=== PATIENT | female | born 1980 | race Caucasian/White ===

== ENCOUNTER 2021-04-13 08:49 | Emergency (ER) | payer OTHER, SELFPAY ==
--- NOTE | ~2021-04-13 | CT_ITS ---
EXAMINATION: CT ABDOMEN AND PELVIS WITHOUT CONTRAST CLINICAL INFORMATION: Left flank pain. History of renal colic. COMPARISON: CT pelvis 06/21/2020 TECHNIQUE: Multidetector volumetric imaging was performed from the superior aspect of the liver through the pubic symphysis. Sagittal and coronal reformatted images were obtained on the technologist's workstation. This CT examination was performed using dose optimization techniques as appropriate, variously including the following: *Automated exposure control *Adjustment of mA and/or kV according to patient size (this includes techniques or standardized protocols for targeted exams where dose is matched to indication/reason for exam; i.e. extremities or head) *Use of iterative reconstruction technique DLP: 1840 mGy-cm FINDINGS: LUNG BASES: The lung bases are clear. The heart size is normal. LIVER, GALLBLADDER, AND BILIARY TREE: The liver is normal in size, shape, and attenuation. No focal hepatic lesion or biliary ductal dilatation is present. The gallbladder is contracted and appears unremarkable. PANCREAS: Unremarkable. SPLEEN: Unremarkable. ADRENAL GLANDS: Unremarkable. KIDNEYS AND URETERS: Both kidneys are normal size and shape and position. There are multiple radiopaque calculi in midpole and lower pole left kidney. Largest radiopaque calculi mid pole measures 6 mm and lower pole calyx measures 1.2 cm. In midpole cortex calculi measures 6 mm as well. No focal caliectasis or hydronephrosis seen. Small radiopaque calculi visualized in upper pole and lower pole right kidney as well. Largest calculus upper pole measures 3 mm and lower pole measures 3 mm. No focal caliectasis or hydronephrosis seen. BLADDER: Unremarkable. GASTROINTESTINAL TRACT: The small and large bowel are unremarkable. The appendix is unremarkable. ABDOMINAL WALL: No significant hernia is appreciated. LYMPH NODES: Normal. VASCULAR: Unremarkable. PELVIC VISCERA: There are numerous bilateral inguinal lymph nodes largest in the left inguinal region measures 2.2 x 1.3 cm. OSSEOUS STRUCTURES: The sacrum is diffusely hypodense compared to pelvic and lumbar spine density there is deformity of bilateral femurs with intramedullary femoral linda secondary to osteogenesis imperfecta. There is extra scoliosis of dorsal spine. CT/CT abdomen pelvis wo con IMPRESSION: Multiple bilateral nonobstructive radiopaque renal calculi. No hydronephrosis. Normal appendix. Bilateral inguinal lymph nodes largest in the left inguinal region. Sequelae of question isn't perfect involving bilateral femur. General abnormality of bilateral hip joints
--- NOTE | 2021-04-13 08:57 | ED.ABDPAIN ---
HPI - Abdominal Pain General Chief Complaint: Back Pain/Injury Stated Complaint: L FLANK PAIN,? KIDNEY STONE Time Seen by Provider: 04/13/21 08:52 Source: patient, family, EMS and old records reviewed Mode of arrival: EMS Limitations: no limitations History of Present Illness MD elicited complaint: flank pain Pertinent past history: kidney stones Onset (ago): day(s) (2 days but much worse this AM) Pain Consistency: colicky Location: L flank Severity: moderate Quality: stabbing Radiation: LLQ Migration to: no migration Exacerbating factors: nothing Relieving factors: nothing Context: history of similar episodes Associated symptoms: nausea, vomiting and diarrhea Related Data Home Medications Medication Instructions Recorded Confirmed albuterol sulfate 2.5 mg INHALATION .QH8 PRN ml 07/17/20 09/24/20 albuterol sulfate 90 mcg/actuation 2 puff INHALATION Q4H PRN g 07/17/20 09/24/20 aerosol inhaler oxybutynin chloride 5 mg mg PO 07/17/20 09/24/20 tablet,extended release 24 hr Previous Rx's Medication Instructions Recorded morphine 30 mg immediate release 30 mg PO Q8H 30 Days #90 tab 09/16/20 tablet clotrimazole-betamethasone 1 1 appl TOPICAL ONCE 30 Days #45 g 09/24/20 %-0.05 % topical cream nystatin 100,000 unit/gram topical 1 appl TOPICAL ONCE 30 Days #60 g 09/24/20 powder zonisamide 100 mg capsule 600 mg PO BEDTIME #540 cap 12/01/20 ibuprofen 800 mg tablet 800 mg PO Q8H PRN #90 tab 01/29/21 cyclobenzaprine 10 mg tablet 10 mg PO Q8H #90 tab 01/30/21 Allergies Allergy/AdvReac Type Severity Reaction Status Date / Time amoxicillin [Amoxicillin] Allergy Mild HIVES Verified 09/24/20 10:04 aspirin [Aspirin] Allergy Mild HIVES Verified 09/24/20 10:04 codeine [Codeine] Allergy Mild HIVES Verified 09/24/20 10:04 latex [Latex] Allergy Mild HIVES Verified 09/24/20 10:04 Penicillins Allergy Mild HIVES Verified 09/24/20 10:04 azithromycin [AZITHROMYCIN] Allergy Unknown HIVES Verified 09/24/20 10:04 divalproex sodium Allergy Unknown HIVES Verified 09/24/20 10:04 [From Depakote] erythromycin base Allergy Unknown HIVES Verified 09/24/20 10:04 [Erythromycin Base] gabapentin [From Neurontin] Allergy Unknown HIVES Verified 09/24/20 10:04 phenobarbital Allergy Unknown anaphylaxis Verified 09/24/20 10:04 phenytoin [From Dilantin] Allergy Unknown HIVES Verified 09/24/20 10:04 Sulfa (Sulfonamide Allergy Unknown HIVES Verified 09/24/20 10:04 Antibiotics) ALL SEIZURE MEDS Allergy Intermediate HIVES Uncoded 09/24/20 10:04 oxycodone Allergy Unknown hives Uncoded 09/24/20 10:04 Review of Systems Review of Systems Constitutional : No Weight loss, No Fever, No Chills ENT/Mouth : No sore throat, No Rhinorrhea Eyes: No Swelling, No Redness Cardiovascular : No Chest Pain, No SOB, NoEdema Respiratory : No Cough, No Sputum, No Wheezing Gastrointestinal : Positive Nausea, Positive Vomiting, positive Diarrhea, positive abdominal Pain, No Hematochezia, No Melena Genitourinary : No Dysuria, No Urinary Frequency, No Hematuria, No Urgency Musculoskeletal : No joint pain, No Myalgias, No Joint Swelling Skin : No Skin Lesions, No rash Neuro : No Weakness, No Numbness, No Dizziness, No Headache Psych : No Anxiety/Panic, No Depression Heme/Lymph: No Bruising, No Lymphadenopathy Endocrine : No Polyuria, No Polydipsia All other systems reviewed and are negative. Physical Exam Vital Signs: Vital Signs: Last Vital Signs Temp 98.0 F 04/13/21 09:57 Pulse 100 04/13/21 11:51 Resp 18 04/13/21 11:51 BP 115/70 04/13/21 11:51 Pulse Ox 99 04/13/21 09:57 Body Mass Index 101.7 Appearance: Alert. Oriented X3. No acute distress. Eyes: Pupils equal, round and reactive to light. ENT: Pharynx normal. Neck: Normal inspection. Neck supple. CVS: Normal heart rate and rhythm. Pulses normal. Respiratory: No respiratory distress. Breath sounds normal. Abdomen: Soft and obese L flank moderate ttp no rebound Skin: Skin warm and dry. Normal skin color. Normal skin turgor. Extremities: No lower extremity edema. LL bilateral deformities Neuro: Oriented X 3. No motor deficit. No sensory deficit. Course Course Course Narrative: feels better, workup negative no UTI can be safely DC home MDM - Abdominal Pain MDM Narrative Medical decision making narrative: 40 yo female with hx of seizures, osteogenesis imperfecta, prior renal colic requiring stents in the past comes in with L flank pain and n/v/d - feels like a stone to her at this time labs, UA, CT scan for renal colic, IV dilaudid for pain, dispo per results and findings. Lab Data Result diagrams: 04/13/21 10:14 04/13/21 10:14 Labs: Lab Results 04/13/21 04/13/21 04/13/21 Range/Units 10:14 10:14 14:22 WBC 8.0 (4.8-10.8) X10*3/uL RBC 4.79 (4.20-5.50) X10*6/uL Hgb 12.3 (12.0-16.0) g/dl Hct 40.0 (37-47) % MCV 83.5 (80-98) fL MCH 25.7 L (27.0-33.0) pg MCHC 30.8 L (31.0-35.0) g/dl RDW 15.9 (11.0-16.0) % Plt Count 260 (160-400) X10*3/uL MPV 9.6 (9.4-12.3) fL Immature Gran % (Auto) 0.4 (0.0-0.4) % Neut % (Auto) 80.9 H (45-73) % Lymph % (Auto) 13.2 L (20-40) % [place] % (Auto) 5.0 (2-11) % Eos % (Auto) 0.4 (0-4) % Baso % (Auto) 0.1 (0-2) % Lymph # (Auto) 1.1 L (1.2-4.9) X10*3/uL [place] # (Auto) 0.4 (0.1-1.2) X10*3/uL Eos # (Auto) 0.0 (0.0-0.4) X10*3/uL Baso # (Auto) 0.0 (0.0-0.2) X10*3/uL Abs Immat Gran (auto) 0.03 (0.00-0.03) X10*3/uL Absolute Neuts (auto) 6.5 (2.0-8.3) X10*3/uL Absolute Nucleated RBC 0.000 (0.0-0.012) X10*3/uL Nucleated RBC % (auto) 0.0 (0.0-0.2) /100WBC Sodium 144 (135-145) mmol/L Potassium 4.0 (3.3-5.1) mmol/L Chloride 113 H (96-108) mmol/L Carbon Dioxide 23 (22-29) mmol/L Anion Gap 12 (12-20) BUN 12 (9-16) mg/dL Creatinine 0.71 (0.5-1.4) mg/dL Estim Creat Clear Calc 62.3 Estimated GFR > 60 Random Glucose 131 H (60-115) mg/dL Calcium 9.0 (8.4-10.2) mg/dL Magnesium 2.2 (1.6-2.6) mg/dL Total Bilirubin 0.3 (0.0-1.0) mg/dL Direct Bilirubin < 0.2 (0.0-0.5) mg/dL AST 12 (5-31) U/L ALT 16 (0-31) U/L Alkaline Phosphatase 97 (39-117) U/L Total Protein 7.2 (6.5-8.0) g/dL Albumin 3.7 (3.5-5.0) g/dL Lipase 53 (8-78) U/L Urine Color YELLOW Urine Appearance HAZY Urine pH 6.0 (5.0-8.0) Ur Specific [place] >= 1.030 H (1.005-1.025) Urine Protein TRACE (NEG-TRACE) MG/DL Urine Glucose (UA) NEG (NEG) MG/DL Urine Ketones NEG (NEG) MG/DL Urine Blood 2+ H (NEG) Urine Nitrite NEG (NEG) Ur Leukocyte Esterase NEG (NEG) Urine RBC 10-14 H (0) /HPF Urine WBC 0 (0-4) /HPF Ur Squamous Epith Cells TRACE /LPF Calcium Oxalate Crystal TRACE /LPF Urine Bacteria NONE /LPF Urine Mucus TRACE /LPF Discharge Plan Discharge Clinical Impression: Acute flank pain Patient Disposition: Home, Self-Care Instructions: Kidney Stones (ED) Additional Instructions: return to ED for any worsening symptoms or concerns [facility], [place] [id number] Scan ReportSigned Patient: Gale Knutson TMR#: [id number]: [id number]:[id number]/Sex: 40 / FADM Date: 04/13/21Loc: [email or web address] Dr: Ordering Physician: Chen Gupta DO Date of Service: 04/13/21 Procedure(s): CT abdomen pelvis wo con Accession Number(s): [id number] cc: Chen Gupta DO~ EXAMINATION: CT ABDOMEN AND PELVIS WITHOUT CONTRAST CLINICAL INFORMATION: Left flank pain. History of renal colic. COMPARISON: CT pelvis 06/21/2020 TECHNIQUE: Multidetector volumetric imaging was performed from the superior aspect of the liver through the pubic symphysis. Sagittal and coronal reformatted images were obtained on the technologist's workstation. This CT examination was performed using dose optimization techniques as appropriate, variously including the following: *Automated exposure control *Adjustment of mA and/or kV according to patient size (this includes techniques or standardized protocols for targeted exams where dose is matched to indication/reason for exam; i.e. extremities or head) *Use of iterative reconstruction technique DLP: 1840 mGy-cm FINDINGS: LUNG BASES: The lung bases are clear. The heart size is normal. LIVER, GALLBLADDER, AND BILIARY TREE: The liver is normal in size, shape, and attenuation. No focal hepatic lesion or biliary ductal dilatation is present. The gallbladder is contracted and appears unremarkable. PANCREAS: Unremarkable. SPLEEN: Unremarkable. ADRENAL GLANDS: Unremarkable. KIDNEYS AND URETERS: Both kidneys are normal size and shape and position. There are multiple radiopaque calculi in midpole and lower pole left kidney. Largest radiopaque calculi mid pole measures 6 mm and lower pole calyx measures 1.2 cm. In midpole cortex calculi measures 6 mm as well. No focal caliectasis or hydronephrosis seen. Small radiopaque calculi visualized in upper pole and lower pole right kidney as well. Largest calculus upper pole measures 3 mm and lower pole measures 3 mm. No focal caliectasis or hydronephrosis seen. Prescriptions: No Action morphine 30 mg tablet 30 mg PO Q8H 30 Days Qty: 90 RF: 0 zonisamide 100 mg capsule 600 mg PO BEDTIME Qty: 540 RF: 3 ibuprofen 800 mg tablet 800 mg PO Q8H PRN (Reason: for pain) Qty: 90 RF: 2 cyclobenzaprine 10 mg tablet 10 mg PO Q8H Qty: 90 RF: 3 nystatin 100,000 unit/gram powder 1 appl topical ONCE 30 Days Qty: 60 RF: 3 clotrimazole-betamethasone 1-0.05 % cream 1 appl topical ONCE 30 Days Qty: 45 RF: 3 oxybutynin chloride 5 mg tablet extended release 24hr PO RF: 0 albuterol sulfate [ProAir HFA] 90 mcg/actuation HFA aerosol inhaler 2 puff inhalation Q4H PRNRF: 0 albuterol sulfate 2.5 mg /3 mL (0.083 %) solution for nebulization 2.5 mg inhalation .QH8 PRNRF: 0 Referrals: Physician,Unknown [Primary Care Provider] - 1 day (follow up with primary tommorrow) [facility] Past Medical History Attestation statement: The following information was validated with the patient. Medical History Osteogenesis imperfecta Renal colic Seizure disorder Surgical History History of cystoscopy History of orthopedic surgery Family History Family History Father Diabetes Hypertension Mother Cervical disc disease Fibromyalgia Breast cancer Social History Social History (Updated 04/13/21 @ 09:54 by Chen Gupta DO) Alcohol intake: never Patient Tobacco Use Status: Never used Tobacco Use of substances other than those prescribed or required for medical reasons: No Advance Directives: No Advance Directives Information Provided: No
[2021-04-13 09:11] VITALS: BP 116/80; BP 147/85; PULSE 71; PULSE 74; RESP 20; TEMP 36.7; O2SAT 94; O2SAT 99; BMI 101.7
[2021-04-13] MEDS: HYDROmorphone HCl 1 MG/ML SYRINGE IVPUSH (09:51)
[2021-04-13] MEDS: ondansetron HCL 4 MG/2 ML VIAL IVPUSH (09:51)
[2021-04-13] MEDS: 0.9 % Sodium Chloride 500 ML IV (09:56)
[2021-04-13 09:57] VITALS: BP 150/70; PULSE 79; RESP 20; TEMP 36.7; O2SAT 99
--- NOTE | 2021-04-13 10:11 | PC.NURSE ---
Pt alert and oriented x3. Pt reports R flank pain x2 days that worsened since waking up this morning. Pt has hx of Kidney stones and states she had the same symptoms. No apparent distress noted. Pt difficult stick, IV established via ultra sound. Fluids hung, meds given as documented. Pt awaiting ultrasound. Mom at bedside.
[2021-04-13 10:18] LABS: MANUAL DIFF FLAG NO
[2021-04-13 10:20] LABS: Basophils Percent Auto 0.1 % (0-2); Eosinophils Percent Auto 0.4 % (0-4); Hemoglobin 12.3 g/dl (12.0-16.0); Imm Gran Abs Auto 0.03 X10*3/uL (0.00-0.03); Imm Gran Pct Auto 0.4 % (0.0-0.4); Lymphocytes Absolute Auto 1.1 X10*3/uL (1.2-4.9); Lymphocytes Percent Auto 13.2 % (20-40); Mean Corpuscular HGB Conc 30.8 g/dl (31.0-35.0); Mean Corpuscular Hemoglobin 25.7 pg (27.0-33.0); Mean Corpuscular Volume 83.5 fL (80-98); Mean Platelet Volume 9.6 fL (9.4-12.3); Monocytes Absolute Auto 0.4 X10*3/uL (0.1-1.2); Neutrophils Absolute Auto 6.5 X10*3/uL (2.0-8.3); Neutrophils Percent Auto 80.9 % (45-73); Platelet Count 260 X10*3/uL (160-400); Red Blood Count 4.79 X10*6/uL (4.20-5.50); Red Cell Distribution Width 15.9 % (11.0-16.0)
[2021-04-13 10:55] LABS: Alanine Aminotransferase 16 U/L (0-31); Albumin Level 3.7 g/dL (3.5-5.0); Alkaline Phosphatase 97 U/L (39-117); Anion Gap 12 (12-20); Aspartate Amino Transferase 12 U/L (5-31); Bilirubin Direct < 0.2 mg/dL (0.0-0.5); Bilirubin Total 0.3 mg/dL (0.0-1.0); Blood Urea Nitrogen 12 mg/dL (9-16); Carbon Dioxide 23 mmol/L (22-29); Chloride 113 mmol/L (96-108); Creatinine Clr Calc Pharmacy 62.3; Estimated Glomerular Filt Rate > 60; Glucose Random 131 mg/dL (60-115); Lipase 53 U/L (8-78); Magnesium 2.2 mg/dL (1.6-2.6); Sodium 144 mmol/L (135-145); Total Protein 7.2 g/dL (6.5-8.0)
[2021-04-13] MEDS: Ketorolac Tromethamine 15 MG/ML VIAL IVPUSH ×2 (11:47→11:48)
[2021-04-13 11:51] VITALS: BP 115/70; PULSE 100; RESP 18
[2021-04-13 14:35] LABS: Glucose Urine UA NEG (NEG); Leukocyte Esterase Urine NEG (NEG); Nitrite Urine NEG (NEG); Specific Gravity - Urine >= 1.030 (1.005-1.025); Urine Blood 2+ (NEG); Urine Ketones NEG (NEG); Urine Protein TRACE MG/DL (NEG-TRACE)
[2021-04-13 14:36] LABS: Appearance Urine HAZY; Color Urine YELLOW
[2021-04-13 14:42] LABS: Calcium Oxalate Crystals Urine TRACE /LPF; Mucus Urine TRACE /LPF; Squamous Epithelial Cell Urine TRACE /LPF; WBC Urine 0 /HPF (0-4)
[2021-04-13 15:18] VITALS: BP 135/78; PULSE 89; RESP 16; TEMP 36.7; O2SAT 94
== END 2021-04-13 16:00 | disposition home or self-care (01) ==
PROVIDERS: Emergency Provider Emergency Medicine
DX: R10.32 Left lower quadrant pain (principal); Z87.442 Personal history of urinary calculi; Z79.899 Other long term (current) drug therapy
CPT/HCPCS: 36415; 74176; 80048; 80076; 81001; 83690; 83735; 85025; 96365; 96375; 96376; 99284; J1170; J1885; J2405

== ENCOUNTER 2023-04-10 13:58 | Emergency (ER) | payer OTHER, SELFPAY ==
--- NOTE | ~2023-04-10 | CT_ITS ---
EXAMINATION: CT chest, abdomen and pelvis without IV contrast. CLINICAL INDICATIONS: Shortness of breath. Diffuse abdominal pain, distention, nausea and diarrhea. COMPARISON: CT abdomen and pelvis without contrast 04/13/2021. TECHNIQUE: 5 mm thin axial and reformatted 3 mm thin sagittal and coronal images of chest, abdomen and pelvis were obtained with IV 100 mL Omnipaque 350. DLP 2143. This CT examination was performed using dose optimization technique as appropriate, variously including the following: Automated exposure control Adjustment of MA and/or KV according to patient size(this includes techniques or standardized protocols for targeted exams where dose is matched to indication/reason for exam; extremities or head. Use of iterative reconstruction techniques. FINDINGS: CHEST: LUNGS: Lungs are well-expanded and clear of acute process. No pulmonary nodule, mass or consolidation seen. Pleura: There is no pleural effusion, thickening or calcification. Mediastinum: The heart size is enlarged. There is no pericardial effusion.. No coronary artery calcifications visualized. Central trachea and the bronchi are widely patent. The thyroid lobes are symmetrical and normal. Axilla: No abnormal size axillary lymph nodes seen. The chest wall is unremarkable. Osseous structures: There is dextroscoliosis of dorsal spine. No visible rib fracture seen. No compression deformity of the dorsal spine noted. Mild degenerative disc changes are seen in mid dorsal spine. ABDOMEN AND PELVIS: Liver, ducts and gallbladder: The liver is homogeneous is normal size and contour. It is mildly attenuated with no focal lesion seen. No intrahepatic ductal dilatation seen. The gallbladder is unremarkable. Spleen: Unremarkable. Adrenal glands: Unremarkable. Kidneys and ureter: There are bilateral nephrolithiasis. Largest radiopaque calculi lower pole left kidney measures 1.5 cm. Largest radiopaque calculi seen in the left renal pelvis measures 1.9 cm on axial image 30/6. There is moderate left hydroureteronephrosis with no obstructive etiology seen. There is no right-sided hydronephrosis. There are small calculi in the upper mid and lower pole right kidney. No perinephric stranding seen. Lymphovascular structures: The abdominal aorta is normal caliber. No abnormal size retroperitoneal or pelvic lymph nodes seen. GI tract: The colon is nondistended with nonspecific mural thickening. No pericolic fat stranding seen. The small bowel loops are normal caliber. There is no pneumobilia. Abdominal wall: There is small medical hernia containing fat. Mild diastases of lower abdominal wall is noted. Pelvis: The urinary bladder is nondistended and appears unremarkable. There is significant collateral prominent vessels in bilateral inguinal region, Question portal venous hypertension. Osseous structures: There are small intramedullary metallic pins through the femur likely for congenital skeletal abnormality. There are mild vertebral deformities. CT/CT abdomen pelvis w IV con IMPRESSION: There is no acute process seen in the chest or abdomen. Bilateral left nephrolithiasis with left hydroureteronephrosis but no obstructive etiology seen. The hydronephrosis is new. There is a large left pelvic kidney stone. Nonspecific mild thickening of the colon which could be due to underdistention. Similar findings were seen on the previous study. Congenital lower extremity skeletal abnormality./Osteogenesis imperfecta
--- NOTE | ~2023-04-10 | XR_ITS ---
EXAMINATION: XR FOOT, LEFT CLINICAL INFORMATION: Pain and injury COMPARISON: I do not have images of the foot for comparison TECHNIQUE: AP, lateral, and oblique views of the left foot. FINDINGS: There is a markedly abnormal appearance to the bony structures with very gracile ostia no penis appearance consistent with sequela of osteogenesis imperfecta. Marked bony deformity about the visualized ankle. The significant osteopenia makes evaluation for subtle fracture very difficult. I do not appreciate any acute appearing displaced fracture superimposed on these extensive chronic bony changes. XR/XR foot LT 2V IMPRESSION: Extensive chronic appearing bony changes consistent with sequela of osteogenesis imperfecta. I do not appreciate any definitive acute displaced fracture superimposed on these extensive chronic bony changes.
--- NOTE | ~2023-04-10 | XR_ITS ---
EXAMINATION: XR FEMUR, LEFT CLINICAL INFORMATION: Pain COMPARISON: 06/21/2020 CT TECHNIQUE: AP and lateral views of the left femur were obtained. FINDINGS: Per technologist report, diagnostic lateral femur radiograph was not able to be obtained due to patient body habitus and limited range of motion. In the AP projection there are redemonstrated manifestations of osteogenesis imperfecta with left femoral pseudoarthroses. Intramedullary rods appear in stable position compared to prior. No acute fracture is seen. XR/XR femur LT 2V IMPRESSION: No acute findings identified on limited evaluation. Redemonstrated manifestations of osteogenesis imperfecta with left femoral pseudoarthroses.
[2023-04-10 14:06] VITALS: BP 140/80; BP 156/78; PULSE 104; PULSE 75; RESP 18; TEMP 37.2; O2SAT 94; O2SAT 99; BMI 125.4
[2023-04-10 14:16] VITALS: O2SAT 96
--- NOTE | 2023-04-10 14:16 | ED_ITS ---
HPI - Abdominal Pain General Chief Complaint: Abdominal Pain Stated Complaint: SOB,NAUSEA,DIARRHEA Time Seen by Provider: 04/10/23 14:02 Source: patient, family, RN notes reviewed and old records reviewed Mode of arrival: ambulatory History of Present Illness HPI narrative: 42-year-old female with a past medical history of osteogenesis imperfecta, renal colic, seizure disorders, presenting to the ED complaining of SOB, abdominal pain, nausea, nonbloody diarrhea, and feeling tremulous x this morning. Also reports dysuria. Denies known injury/trauma or fall. Denies chest pain, cough, vomiting, constipation. MD elicited complaint: abdominal pain Related Data Home Medications Medication Instructions Recorded Confirmed albuterol sulfate 2.5 mg/3 mL 2.5 mg inhalation .QH8 PRN 07/17/20 09/24/20 (0.083 %) solution for nebulization albuterol sulfate 90 mcg/actuation 2 puff inhalation Q4H PRN 07/17/20 09/24/20 aerosol inhaler (ProAir HFA) oxybutynin chloride 5 mg mg PO 07/17/20 09/24/20 tablet,extended release 24 hr Previous Rx's Medication Instructions Recorded morphine 30 mg immediate release 30 mg PO Q8H pain 30 days #90 tabs 09/16/20 tablet clotrimazole-betamethasone 1 1 appl topical ONCE 30 days #45 09/24/20 %-0.05 % topical cream grams nystatin 100,000 unit/gram topical 1 appl topical ONCE 30 days #60 09/24/20 powder grams ibuprofen 800 mg tablet 800 mg PO Q8H PRN for pain #90 tabs 08/24/21 zonisamide 100 mg capsule 600 mg PO BEDTIME #540 caps 12/03/21 cyclobenzaprine 10 mg tablet 10 mg PO Q8H #90 tabs 07/07/22 Allergies Allergy/AdvReac Type Severity Reaction Status Date / Time amoxicillin [Amoxicillin] Allergy Mild HIVES Verified 04/10/23 14:17 aspirin [Aspirin] Allergy Mild HIVES Verified 04/10/23 14:17 codeine [Codeine] Allergy Mild HIVES Verified 04/10/23 14:17 latex [Latex] Allergy Mild HIVES Verified 04/10/23 14:17 Penicillins Allergy Mild HIVES Verified 04/10/23 14:17 azithromycin [AZITHROMYCIN] Allergy Unknown HIVES Verified 04/10/23 14:17 divalproex sodium Allergy Unknown HIVES Verified 04/10/23 14:17 [From Depakote] erythromycin base Allergy Unknown HIVES Verified 04/10/23 14:17 [Erythromycin Base] gabapentin [From Neurontin] Allergy Unknown HIVES Verified 04/10/23 14:17 phenobarbital Allergy Unknown anaphylaxis Verified 04/10/23 14:17 phenytoin [From Dilantin] Allergy Unknown HIVES Verified 04/10/23 14:17 Sulfa (Sulfonamide Allergy Unknown HIVES Verified 04/10/23 14:17 Antibiotics) ALL SEIZURE MEDS Allergy Intermediate HIVES Uncoded 09/24/20 10:04 oxycodone Allergy Unknown hives Uncoded 09/24/20 10:04 Review of Systems Review of Systems Constitutional: No Fever, No Chills, No Fatigue, No Malaise, +tremulous ENT/Mouth: No Ear Pain, No Nasal Congestion, No sore throat, No Rhinorrhea, No Swallowing Difficulty Eyes: No Eye Pain, No Swelling, No Redness, No Vision Changes Cardiovascular: No Chest Pain, + SOB, No Dyspnea on Exertion, No Orthopnea, No Edema, No Palpitations Respiratory: No Cough, No Sputum, No Dyspnea Gastrointestinal: + Nausea, No Vomiting, + Diarrhea, No Constipation, +Abdominal pain Genitourinary: No irregular bleeding, + Dysuria, No Urinary Frequency, No Hematuria, No Flank Pain Musculoskeletal: No joint pain, No Myalgias, No Joint Swelling Skin: No Skin Lesions, No rash Neuro: No Weakness, No Numbness, No Loss of Consciousness, No Dizziness, No H eadache Yes all other systems are reviewed and are negative Constitutional: Reports as per [facility] Past Medical History Attestation statement: The following information was validated with the patient. Source: old records reviewed Medical History Osteogenesis imperfecta Renal colic Seizure disorder Surgical History History of cystoscopy History of orthopedic surgery Family History Family History Father Diabetes Hypertension Mother Cervical disc disease Fibromyalgia Breast cancer Social History Social History (Reviewed 04/10/23 @ 14:40 by VIOLA Mancera Alcohol intake: never Patient Tobacco Use Status: Never used Tobacco Smoked in Last 30 Days: No Use of substances other than those prescribed or required for medical reasons: No Advance Directives: No Advance Directives Information Provided: Yes Physical Exam ED Vital Signs: Vital Signs - 24 hr 04/10/23 14:06 04/10/23 14:16 Temperature 98.9 F Pulse Rate 75 Respiratory Rate 18 Blood Pressure 140/80 H Pulse Oximetry 94 96 Oxygen Delivery Method Room Air Room Air BMI result Body Mass Index 125.4 Const General: cooperative and no acute distress Orientation/consciousness: patient oriented x3 Limitations: no limitations HENMT Head: Yes normal to inspection and Yes atraumatic Ears: hearing grossly normal bilaterally General nose exam: Normal external nose present Face and sinus: Yes normal facial exam Mouth: Normal oral and palatal mucosa present Throat: Yes posterior oropharynx normal Eyes General: appearance normal, both eyes and all related structures EOM: EOMs intact bilaterally Neck Neck: Yes normal visual inspection and Yes no meningeal signs Chest Chest palpation & inspection: normal inspection of the chest Resp Effort & Inspection: normal respiratory effort and no respiratory distress Auscultation: diminished lung sounds diffuse Cardio Rate: regular rate Heart sounds: S1 normal heart sound present and S2 normal heart sound present GI Inspection: Yes normal to inspection and Yes distended Palpation (GI): Soft to palpation, Tenderness to palpation present (GI) (diffusely) with no rebound tenderness, no guarding and not rigid Skin Rashes: no rashes Wounds: no wounds Neuro General: patient oriented x3, tone normal and no meningeal signs Extrem General: Yes normal to inspection Course Course Course Narrative: -no leukocytosis. H&H stable. AST mildly elevated. Labs otherwise reassuring -1630--ED care transferred to MALIKA Borja pending troponin, UA, CT chest and abdomen pelvis. Dispo per results Medical Decision Making Medical Decision Making MDM Narrative: 42-year-old female with a past medical history of osteogenesis imperfecta, renal colic, seizure disorders, presenting to the ED complaining of SOB, abdominal pain, nausea, nonbloody diarrhea, and feeling tremulous x this morning. Also reports dysuria. On exam vital signs stable, NAD, nontoxic appearing, diminished lung sounds throughout with shallow breath sounds, abdomen soft, distended, diffusely tender, no rebound or guarding. Concern for rib fractures vs pneumonia vs appendicitis/diverticulitis or SBO/constipation. Lower suspicion for cholecystitis/lithiasis at this time. Rule out UTI/pyelo Plan: EKG, labs, UA, chest CT, CT AP, IVF, pain control Please refer to course for remaining clinical decision making, interpretation of labs/imaging results, and discussions with consultants and/or family members. Differential Diagnosis Differential Diagnoses: The differential diagnosis associated with the presentation includes As above Admission/Observation Consideration of admission/observation: Escalation of care including admission/observation considered Lab Data MDM Lab Attestation statement: I reviewed the patient's lab results. 04/10/23 14:57 04/10/23 14:57 Labs: Lab Results 04/10/23 04/10/23 04/10/23 Range/Units 14:57 14:57 14:57 WBC 8.0 (4.8-10.8) X10*3/uL RBC 4.80 (4.20-5.50) X10*6/uL Hgb 12.2 (12.0-16.0) g/dl Hct 39.1 (37.0-47.0) % MCV 81.5 (80.0-98.0) fL MCH 25.4 L (27.0-33.0) pg MCHC 31.2 (31.0-35.0) g/dl RDW 16.0 (11.0-16.0) % Plt Count 227 (160-400) X10*3/uL MPV 9.4 (9.4-12.3) fL Immature Gran % (Auto) 0.2 (0.0-0.4) % Neut % (Auto) 81.3 H (45-73) % Lymph % (Auto) 12.9 L (20-40) % Spencer % (Auto) 4.7 (2-11) % Eos % (Auto) 0.7 (0-4) % Baso % (Auto) 0.2 (0-2) % Lymph # (Auto) 1.0 L (1.2-4.9) X10*3/uL Spencer # (Auto) 0.4 (0.1-1.2) X10*3/uL Eos # (Auto) 0.1 (0.0-0.4) X10*3/uL Baso # (Auto) 0.0 (0.0-0.2) X10*3/uL Abs Immat Gran (auto) 0.02 (0.00-0.03) X10*3/uL Absolute Neuts (auto) 6.5 (2.0-8.3) x10*3/uL Absolute Nucleated RBC 0.000 (0.0-0.012) X10*3/uL Nucleated RBC % (auto) 0.0 (0.0-0.2) /100WBC PT 12.3 (10.0-13.1) SEC INR 1.1 (0.9-1.1) Sodium 142 (135-145) mmol/L Potassium 4.4 (3.3-5.1) mmol/L Chloride 112 H (96-108) mmol/L Carbon Dioxide 20 L (22-29) mmol/L Anion Gap 14 (12-20) BUN 15 (9-16) mg/dL Creatinine 0.64 (0.5-1.4) mg/dL Estim Creat Clear Calc 63.9 Estimated GFR > 60 Random Glucose 128 H (60-115) mg/dL Calcium 9.8 D (8.4-10.2) mg/dL Magnesium 2.3 (1.6-2.6) mg/dL Total Bilirubin 0.2 (0.0-1.0) mg/dL Direct Bilirubin < 0.2 (0.0-0.5) mg/dL AST 32 H (5-31) U/L ALT 17 (0-31) U/L Alkaline Phosphatase 79 (39-117) U/L B-Natriuretic Peptide (<100) pg/mL Total Protein 8.3 H (6.5-8.0) g/dL Albumin 3.6 (3.5-5.0) g/dL Lipase 50 (8-78) U/L 04/10/23 Range/Units 14:58 WBC (4.8-10.8) X10*3/uL RBC (4.20-5.50) X10*6/uL Hgb (12.0-16.0) g/dl Hct (37.0-47.0) % MCV (80.0-98.0) fL MCH (27.0-33.0) pg MCHC (31.0-35.0) g/dl RDW (11.0-16.0) % Plt Count (160-400) X10*3/uL MPV (9.4-12.3) fL Immature Gran % (Auto) (0.0-0.4) % Neut % (Auto) (45-73) % Lymph % (Auto) (20-40) % Spencer % (Auto) (2-11) % Eos % (Auto) (0-4) % Baso % (Auto) (0-2) % Lymph # (Auto) (1.2-4.9) X10*3/uL Spencer # (Auto) (0.1-1.2) X10*3/uL Eos # (Auto) (0.0-0.4) X10*3/uL Baso # (Auto) (0.0-0.2) X10*3/uL Abs Immat Gran (auto) (0.00-0.03) X10*3/uL Absolute Neuts (auto) (2.0-8.3) x10*3/uL Absolute Nucleated RBC (0.0-0.012) X10*3/uL Nucleated RBC % (auto) (0.0-0.2) /100WBC PT (10.0-13.1) SEC INR (0.9-1.1) Sodium (135-145) mmol/L Potassium (3.3-5.1) mmol/L Chloride (96-108) mmol/L Carbon Dioxide (22-29) mmol/L Anion Gap (12-20) BUN (9-16) mg/dL Creatinine (0.5-1.4) mg/dL Estim Creat Clear Calc Estimated GFR Random Glucose (60-115) mg/dL Calcium (8.4-10.2) mg/dL Magnesium (1.6-2.6) mg/dL Total Bilirubin (0.0-1.0) mg/dL Direct Bilirubin (0.0-0.5) mg/dL AST (5-31) U/L ALT (0-31) U/L Alkaline Phosphatase (39-117) U/L B-Natriuretic Peptide < 10 (<100) pg/mL Total Protein (6.5-8.0) g/dL Albumin (3.5-5.0) g/dL Lipase (8-78) U/L Independent Interpretation I performed an independent interpretation of an: EKG (EKG sinus tachycardia at a rate of 1020. Your interval 186. QTC 463. No STEMI.) Radiology Impression Discussion of test interpretation with radiology: I have reviewed the radiologist's reading. Independent Historian Clinical information obtained from an independent historian. History obtained from or confirmed by: Parent External Record Review External record reviewed: Inpatient record, Office record, Outpatient record, Prior outpatient labs, Prior outpatient radiology, Primary care record and Outside ED record Tests considered The following testing was considered but not selected: As above Prescription Management I considered prescription management with: Pain Medication Chronic Conditions Patient?s care impacted by: Other (Osteogenesis imperfecta) Discharge Plan Discharge Clinical Impression: Shortness of breath, Abdominal pain Patient Disposition: Still a Patient Prescriptions: No Action morphine 30 mg tablet 30 mg PO Q8H 30 Days Qty: 90 0RF ibuprofen 800 mg tablet 800 mg PO Q8H PRN (Reason: for pain) Qty: 90 0RF zonisamide 100 mg capsule 600 mg PO BEDTIME Qty: 540 3RF cyclobenzaprine 10 mg tablet 10 mg PO Q8H Qty: 90 3RF nystatin 100,000 unit/gram powder 1 appl topical ONCE 30 Days Qty: 60 3RF clotrimazole-betamethasone 1-0.05 % cream 1 appl topical ONCE 30 Days Qty: 45 3RF oxybutynin chloride 5 mg tablet extended release 24hr PO albuterol sulfate [ProAir HFA] 90 mcg/actuation HFA aerosol inhaler 2 puff inhalation Q4H PRN albuterol sulfate 2.5 mg /3 mL (0.083 %) solution for nebulization 2.5 mg inhalation .QH8 PRN
--- NOTE | 2023-04-10 14:28 | ECG_ITS ---
Test Reason : SOB Blood Pressure : / mmHG Vent. Rate : 102 BPM Atrial Rate : 102 BPM P-R Int : 186 ms QRS Dur : 088 ms QT Int : 356 ms P-R-T Axes : 046 051 049 degrees QTc Int : 463 ms Sinus tachycardia Low voltage QRS Borderline ECG When compared with ECG of 25-MAY-2019 00:46, NH interval has decreased Minimal criteria for Anterior infarct are no longer Present Referred By: Felisa Pritchett Electronically Signed By:MARITN MCKOY MD
[2023-04-10 15:03] LABS: Basophils Percent Auto 0.2 % (0-2); Eosinophils Absolute Auto 0.1 X10*3/uL (0.0-0.4); Eosinophils Percent Auto 0.7 % (0-4); Hematocrit 39.1 % (37.0-47.0); Hemoglobin 12.2 g/dl (12.0-16.0); Imm Gran Abs Auto 0.02 X10*3/uL (0.00-0.03); Imm Gran Pct Auto 0.2 % (0.0-0.4); Lymphocytes Percent Auto 12.9 % (20-40); MANUAL DIFF FLAG NO; Mean Corpuscular HGB Conc 31.2 g/dl (31.0-35.0); Mean Corpuscular Hemoglobin 25.4 pg (27.0-33.0); Mean Corpuscular Volume 81.5 fL (80.0-98.0); Mean Platelet Volume 9.4 fL (9.4-12.3); Monocytes Absolute Auto 0.4 X10*3/uL (0.1-1.2); Monocytes Percent Auto 4.7 % (2-11); Neutrophils Absolute Auto 6.5 x10*3/uL (2.0-8.3); Neutrophils Percent Auto 81.3 % (45-73); Platelet Count 227 X10*3/uL (160-400)
[2023-04-10 15:09] LABS: INTERNATIONAL NORM RATIO 1.1 (0.9-1.1); Prothrombin Time 12.3 SEC (10.0-13.1)
[2023-04-10 15:30] LABS: B Type Natriuretic Peptide < 10 pg/mL (<100)
[2023-04-10 15:31] LABS: Alanine Aminotransferase 17 U/L (0-31); Albumin Level 3.6 g/dL (3.5-5.0); Alkaline Phosphatase 79 U/L (39-117); Anion Gap 14 (12-20); Aspartate Amino Transferase 32 U/L (5-31); Bilirubin Direct < 0.2 mg/dL (0.0-0.5); Bilirubin Total 0.2 mg/dL (0.0-1.0); Blood Urea Nitrogen 15 mg/dL (9-16); Calcium 9.8 mg/dL (8.4-10.2); Carbon Dioxide 20 mmol/L (22-29); Chloride 112 mmol/L (96-108); Creatinine Clr Calc Pharmacy 63.9; Estimated Glomerular Filt Rate > 60; Glucose Random 128 mg/dL (60-115); Lipase 50 U/L (8-78); Magnesium 2.3 mg/dL (1.6-2.6); Potassium 4.4 mmol/L (3.3-5.1); Sodium 142 mmol/L (135-145); Total Protein 8.3 g/dL (6.5-8.0)
[2023-04-10 16:38] VITALS: BP 118/89; PULSE 91; RESP 16; TEMP 36.8; O2SAT 97
--- NOTE | 2023-04-10 16:39 | MHC.EDTECH ---
THIS PCT ASSUMED CARE OF PATIENT AT 1515 ,PATIENT WAS INCONTINENT OF WATERY LOOSE STOOL ,CARE GIVEN BEDDING CHANGE ,TROP DRAWN AND SENT TO LAB ,VITALS SIGN TAKEN ,PATIENT MOM AT BEDSIDE .
[2023-04-10 16:41] LABS: Troponin-I High Sensitivity < 2.7 ng/L (<3.5-17.0)
--- NOTE | 2023-04-10 16:45 | PC.NURSE ---
family reporting poss femus fx, provider aware, pt to CT.
[2023-04-10] MEDS: ondansetron HCL 4 MG/2 ML VIAL IVPUSH (16:46)
[2023-04-10] MEDS: Morphine Sulfate 4 MG/ML CARTRIDGE IVPUSH ×2 (16:46→20:57)
[2023-04-10] MEDS: 0.9 % Sodium Chloride 500 ML 999 ML IV (16:47)
[2023-04-10] MEDS: iohexoL 350 MG/ML 100 ML INFUS..BTL IV (17:08)
[2023-04-10 18:00] VITALS: BP 130/75; PULSE 74; RESP 16; TEMP 36.8; O2SAT 97
--- NOTE | 2023-04-10 18:32 | MHC.EDTECH ---
PATIENT 1800 ROUNDING DONE ,VITALS SIGN TAKEN ,PATIENT WAS ASSISTED UNTO THE BED LUBIN ,CARE GIVEN ,WARM BLANKET GIVEN ,URINE SAMPLE COLLECTED AND SENT TO LAB ,PATIENT MON AT BEDSIDE .
[2023-04-10 18:49] LABS: Appearance Urine Turbid; Color Urine Yellow; Glucose Urine UA Negative (Negative); Leukocyte Esterase Urine Trace (Negative); Nitrite Urine Negative (Negative); Specific Gravity - Urine >= 1.030 (1.005-1.025); UMIC TRIGGER UACC YES; Urine Blood Small (1+) (Negative); Urine Ketones Negative (Negative); Urine Protein Trace mg/dL (Neg-Trace)
[2023-04-10 18:54] LABS: Bacteria Urine Trace (None Seen); Hyaline Casts Urine 0-2 /LPF (0-2); RBC Urine >20 /HPF (0-2); Squamous Epithelial Cell Urine 0-2 /HPF (0-2); UACC Culture Trigger YES
[2023-04-10 20:00] VITALS: BP 134/49; PULSE 101; RESP 16; TEMP 36.7; O2SAT 94
[2023-04-10 22:00] VITALS: BP 124/79; PULSE 109; RESP 16; TEMP 37.6; O2SAT 96
[2023-04-10] MEDS: Morphine Sulfate ER 30 MG TABLET.ER PO (22:57)
--- NOTE | 2023-04-10 23:22 | MHC.EDTECH ---
PATIENT WAS ASSISTED TO USE THE BEDPAN ,VOID LARGE AMOUNT OF URINE ,BED BATH GIVEN ,PATIENT WAS PUT INTO CLEAN GOWN ,BEDDING CHANGE ,PATIENT DRANK 120 ICE WATER ,AND PATIENT WAS REPOSITION AND BOOSTED UP IN BED ,PATIENT MOM TOOK PATIENT BELONGINGS HOME .
[2023-04-11] VITALS: BP 135/67; PULSE 92; RESP 16; TEMP 36.2; O2SAT 94
--- NOTE | 2023-04-11 00:04 | MHC.EDTECH ---
0000 ROUNDING DONE ,VITALS SIGN TAKEN PT SLEEPING ,CALL KHAN WITHIN REACH ,PATIENT MOM LEFT .
[2023-04-11 01:29] VITALS: RESP 18; O2SAT 98
[2023-04-11 02:00] VITALS: BP 112/68; PULSE 86; RESP 16; TEMP 36.5; O2SAT 98
--- NOTE | 2023-04-11 02:12 | MHC.EDTECH ---
0200 rounding done ,vital sign taken ,patient sleeping ,breaths are even and unlabored ,call rendon within reach .
--- NOTE | 2023-04-11 02:39 | MHC.EDTECH ---
PATIENT WAS HUNGRY ,HAD A TUNA FISH SANDWICH AND A CAN OF RJ CAROLINE .
[2023-04-11 05:52] VITALS: BP 111/70; PULSE 95; RESP 15; TEMP 36.8; O2SAT 95
[2023-04-11] MEDS: Morphine Sulfate ER 30 MG TABLET.ER PO (06:39)
[2023-04-11] MEDS: Nitrofurantoin Monohyd/M-Cryst 100 MG CAPSULE PO (09:37)
--- NOTE | 2023-04-11 09:44 | PHA.MEDREC ---
Pharmacy Consult ? Medication Reconciliation Pharmacy has completed the medication reconciliation. Spoke to patient to confirm meds.
--- NOTE | 2023-04-11 12:23 | MHC.CM.ED ---
Received case management consult overnight. Patient came to the ER due to SOB, nausea and diarrhea. Work up essentially negative. Physical therapy ordered and pending. Met with patient and mother, Nereyda. Patient lives with her mother and father, has all the equipment she needs for her home and to transport outside of the home, and receives [employer] hours through [employer]. Patient's mother, sister and brother assist patient. PCP is through [facility] and comes to patient's home. Nereyda is unsure of providers name. Copy of HCP verified to be on file. Patient is vaxxed and boosted x2. Patient and Nereyda not interested in STR or nursing home placement and want patient to return home. Patient's father will be at the ER around 1pm to transport patient home. Patient, Nereyda, Warren DENIS and Lin ROUSE aware. Continue to monitor for d/c needs.
[2023-04-12 00:33] LABS: COVID-19 Test Negative (Negative); IDNOW Serial# 08D9AD1C
== END 2023-04-11 13:44 | disposition home or self-care (01) ==
PROVIDERS: Nurse Practitioner Family; Physician Assistant; Emergency Provider Student in an Organized Health Care Education/Training Program
DX: N39.0 Urinary tract infection, site not specified (principal); N13.30 Unspecified hydronephrosis; M25.552 Pain in left hip; S90.32XA Contusion of left foot, initial encounter; W22.8XXA Striking against or struck by other objects, initial encounter; R06.02 Shortness of breath; R10.9 Unspecified abdominal pain; Q78.0 Osteogenesis imperfecta; Y93.9 Activity, unspecified; Y92.9 Unspecified place or not applicable; Y99.9 Unspecified external cause status; Z79.899 Other long term (current) drug therapy; Z20.822 Contact with and (suspected) exposure to COVID-19
CPT/HCPCS: 36415; 71250; 73552; 73620; 74177; 80048; 80076; 81001; 83690; 83735; 83880; 84484; 85025; 85610; 87086; 87635; 93005; 96361; 96374; 96375; 96376; 99285; J2270; J2405; Q9967

== ENCOUNTER → 2023-04-10 14:28 | Outpatient (BNV) | payer OTHER, SELFPAY | PROVIDERS: Emergency Provider Student in an Organized Health Care Education/Training Program; Visit Provider Internal Medicine Cardiovascular Disease | DX: R00.0 Tachycardia, unspecified (principal) | CPT/HCPCS: 93010 ==

== ENCOUNTER 2024-07-09 10:51 | Emergency (ER) | payer OTHER, SELFPAY ==
[2024-07-09] VITALS (8 sets, daily range): BP systolic 115–145; BP diastolic 68–89; PULSE 80–91; RESP 16–20; TEMP 36.8–37; O2SAT 94–97; BMI 66.3
--- NOTE | ~2024-07-09 | XR_ITS ---
EXAMINATION: XR FEMUR, LEFT CLINICAL INFORMATION: Patient with the history of osteogenesis imperfecta and pain in the left thigh rule out fracture COMPARISON: April 10, 2023 TECHNIQUE: AP and lateral views of the left femur were obtained. FINDINGS: Examination is technically limited due to patient's ability to cooperate. There is no interval change in typical appearance of diffuse osteopenia and deformities of the left femur with arm chronic fracture and pseudoarthrosis. Position and appearance of intramedullary rods in the right femur and proximal tibia are stable. The deformity of the left hip and there is suggestion of left hip dislocation question chronic. There is deformity of left knee with not typical appearance of diffusely osteopenic bones. There is no obvious fracture seen on the current examination. Examination is technically limited. XR/XR femur LT 1V IMPRESSION: No interval change in an appearance of chronic deformities of osteogenesis imperfecta and pseudarthrosis of left mid femur. Electronically signed by: Moe Chavis MD 07/09/2024 05:03 PM EDT
--- NOTE | ~2024-07-09 | CT_ITS ---
EXAMINATION: CT ABDOMEN PELVIS WITHOUT IV CONTRAST CLINICAL INFORMATION: left flank pain, hx of kidney stone COMPARISON: Prior CT scan from March 2023 TECHNIQUE: Multidetector volumetric imaging was performed from the superior aspect of the liver through the pubic symphysis , noncontrast CT Sagittal and coronal reformatted images were obtained on the technologist's workstation. This CT examination was performed using dose optimization techniques as appropriate, variously including the following: *Automated exposure control *Adjustment of mA and/or kV according to patient size (this includes techniques or standardized protocols for targeted exams where dose is matched to indication/reason for exam; i.e. extremities or head) *Use of iterative reconstruction technique DLP: 947 mGy-cm FINDINGS: LOWER THORAX: Included lung bases are clear. HEPATOBILIARY: No focal hepatic lesions. No biliary ductal dilatation. GALLBLADDER: Gallbladder unremarkable. SPLEEN: Spleen measures 13.4 x 5 cm. PANCREAS: No focal mass or ductal dilatation. STOMACH AND GASTROINTESTINAL TRACT: Stomach is grossly unremarkable. There is no bowel distention or thickening. No CT evidence of appendicitis. ADRENALS: No adrenal nodules. KIDNEYS/URETERS: Moderate to severe left renal hydronephrosis and hydroureter, there is a large staghorn calculus 2.8 x 1.4 cm, there is mild fat stranding surrounding the renal pelvis which could be backflow versus pyelonephritis. URINARY BLADDER: Partially decompressed. PELVIC VISCERA: Unremarkable PERITONEUM: No free air or fluid. LYMPH NODES: There are enlarged bilateral inguinal lymph nodes. There are anterior pelvic varices. VASCULAR:Abdominal aorta normal in size, no aneurysm found. BONES, ABDOMINAL WALL AND SOFT TISSUES: Severe levoscoliosis. Mild compression fractures of multiple dorsal and lumbar vertebrae are chronic. Deformity of the hip joints chronic. CT/CT abdomen pelvis wo IV con IMPRESSION: 1. Moderate to severe left renal hydronephrosis and hydroureter, there is a large staghorn calculus 2.8 x 1.4 cm left renal collecting system, there is mild fat stranding surrounding the renal pelvis which could be backflow versus pyelonephritis. This has not significantly changed from prior exam. 2. Enlarged bilateral inguinal lymph nodes. 3. Severe levoscoliosis, multiple chronic compression fractures of the dorsal and lumbar vertebrae. Electronically signed by: Aaliyah Ko MD 07/09/2024 04:17 PM EDT RP
--- NOTE | 2024-07-09 11:22 | ED.ABDPAIN ---
HPI - Abdominal Pain General Chief Complaint: Abdominal Pain Stated Complaint: NAUSEA DIARRHEA BACK PAIN Time Seen by Provider: 07/09/24 11:07 Source: patient, family and old records reviewed Limitations: no limitations History of Present Illness ED Provider: DR. Ruby HPI narrative: 43-year-old female history of seizure, osteogenesis imperfecta, kidney stones came in today for 3 days history of left flank pain radiates to left side of the abdomen pain is associated with nausea but no vomiting, started to have nonbloody watery diarrhea last night. Patient with known history of seizure that usually trigger with severe pain patient had to seizure today patient is taking her anti seizure medication. No fever, no chills, no past intra-abdominal surgery, no dysuria, no frequency urination, no blood in the urine. Related Data Home Medications ?Medication ?Instructions ?Recorded ?Confirmed albuterol sulfate 2.5 mg/3 mL 2.5 mg inhalation Q8H PRN 07/17/20 04/11/23 (0.083 %) solution for nebulization Respiratory Distress albuterol sulfate 90 mcg/actuation 2 puff inhalation Q4H PRN 07/17/20 04/11/23 aerosol inhaler (ProAir HFA) Respiratory Distress acetaminophen 650 mg 650 mg PO Q8H PRN pain 04/11/23 04/11/23 tablet,extended release (Mapap Arthritis Pain) cholecalciferol (vitamin D3) 25 25 mcg PO DAILY 04/11/23 04/11/23 mcg (1,000 unit) tablet (Vitamin D3) clotrimazole 1 % topical cream 1 appl topical BID PRN Rash 04/11/23 04/11/23 cyclobenzaprine 10 mg tablet 10 mg PO Q8H PRN Muscle Spasm 04/11/23 04/11/23 morphine 30 mg immediate release 30 mg PO TID PRN Pain 04/11/23 04/11/23 tablet nystatin 100,000 unit/gram topical 1 appl topical BID PRN Rash 04/11/23 04/11/23 powder oxybutynin chloride 5 mg tablet 5 mg PO BID PRN Urinary Retention 04/11/23 04/11/23 Previous Rx's ?Medication ?Instructions ?Recorded ibuprofen 800 mg tablet 800 mg PO Q8H PRN for pain #90 tabs 08/24/21 zonisamide 100 mg capsule 600 mg (6 x 100 mg) PO BEDTIME 12/03/21 #540 caps nitrofurantoin 100 mg PO Q12H 5 days #8 caps 04/11/23 monohydrate/macrocrystals 100 mg capsule (Macrobid) Allergies Allergy/AdvReac Type Severity Reaction Status Date / Time amoxicillin [Amoxicillin] Allergy Mild HIVES Verified 07/09/24 11:12 aspirin [Aspirin] Allergy Mild HIVES Verified 07/09/24 11:12 codeine [Codeine] Allergy Mild HIVES Verified 07/09/24 11:12 latex [Latex] Allergy Mild HIVES Verified 07/09/24 11:12 Penicillins Allergy Mild HIVES Verified 07/09/24 11:12 azithromycin [AZITHROMYCIN] Allergy Unknown HIVES Verified 07/09/24 11:12 divalproex sodium Allergy Unknown HIVES Verified 07/09/24 11:12 [From Depakote] erythromycin base Allergy Unknown HIVES Verified 07/09/24 11:12 [Erythromycin Base] gabapentin [From Neurontin] Allergy Unknown HIVES Verified 07/09/24 11:12 phenobarbital Allergy Unknown anaphylaxis Verified 07/09/24 11:12 phenytoin [From Dilantin] Allergy Unknown HIVES Verified 07/09/24 11:12 Sulfa (Sulfonamide Allergy Unknown HIVES Verified 07/09/24 11:12 Antibiotics) ALL SEIZURE MEDS Allergy Intermediate HIVES Uncoded 07/09/24 11:12 oxycodone Allergy Unknown hives Uncoded 07/09/24 11:12 Review of Systems Review of Systems all other systems are reviewed and are negative Constitutional: Reports as per HPI and Reports no additional constitutional complaints Eyes: Reports as per HPI and Reports no additional eye complaints Reports system reviewed and no additional complaints, except as documented Cardiovascular: Reports as per HPI and Reports no additional cardiovascular complaints Respiratory: Reports as per HPI and Reports no additional respiratory complaints Gastrointestinal: Reports as per HPI and Reports no additional gastrointestinal complaints Genitourinary: Reports no additional female genitourinary complaints Musculoskeletal: Reports no additional musculoskeletal complaints Skin/Breast: Reports system reviewed and no additional complaints, except as docu Psychiatric: Reports no additional psychiatric complaints Endocrine: Reports no additional endocrine complaints Hematologic/Lymphatic: Reports no additional hematologic/lymphatic complaints Allergic/Immunologic: Reports no additional allergic/immunologic complaints Reports system reviewed and no additional complaints, except as documented and Reports Abnormal speech present [facility] Past Medical History Medical History Renal colic Seizure disorder Osteogenesis imperfecta Surgical History History of cystoscopy History of orthopedic surgery Family History Family History Father Diabetes Hypertension Mother Cervical disc disease Fibromyalgia Breast cancer Social History Social History Alcohol intake: never Patient Tobacco Use Status: Never used Tobacco Advance Directives: Yes Advance Directives on File: Yes Advance Directives Date on File: 04/11/23 Physical Exam ED Vital Signs: Vital Signs - 24 hr 07/09/24 11:10 07/09/24 11:17 07/09/24 11:37 Temperature 98.6 F 98.6 F Pulse Rate 84 84 89 Respiratory Rate 18 18 18 Blood Pressure 115/68 115/68 Pulse Oximetry 95 95 97 Oxygen Delivery Method Room Air Room Air Room Air 07/09/24 12:33 Temperature Pulse Rate Respiratory Rate 16 Blood Pressure Pulse Oximetry Oxygen Delivery Method BMI result Body Mass Index 66.3 Vital signs have been reviewed and appear to be correct. Blood pressure elevated. Heart rate normal. Respiratory rate normal. Temperature normal. Oxygen saturation normal. Appearance: Alert. Oriented X3. No acute distress. Head: Normal external exam. Normocephalic. Atraumatic. No Saxena signs noted. No raccoon eyes noted Eyes: PERRLA. EOMI. Conjunctiva and sclera normal. Eyelids normal. ENT: TM's Normal. Pharynx normal. Uvula midline. Moist mucous membranes. No trismus noted. No drooling noted. No muffled voice noted. Neck: Normal inspection. Neck supple. FROM. No adenopathy. Thyroid Normal. No meningeal signs. No neck mass noted. CVS: Normal heart rate and rhythm. Heart sound normal. No murmurs noted. Pulses normal throughout. Respiratory: No respiratory distress. Painless inspiration. Breath sounds normal. No wheezes/rales/rhonchi noted. Chest nontender. No accessory muscle usage noted or decreased air movement noted. Abdomen: Soft and nontender. Bowel sounds normal in all 4 quadrants. No distention noted. No organomegaly noted. No visible injury noted. Back: left CVA tenderness. Full range of motion noted. Skin: Skin warm and dry. Normal skin color. Normal skin turgor. No rashes/lesions/lacerations noted. Extremities: No lower extremity edema. Extremities exhibit normal range of motion. Extremities nontender. Neuro: Oriented X 3. Cranial nerve exam: II-XII are grossly intact No motor deficit. No sensory deficit. Reflexes normal. Course Reevaluation(s) Reevaluation #1: known history of seizure patient had multiple seizure which is usually triggered if the patient is an pain, received Dilaudid in the ED more comfortable, known to have a kidney stones in the past await for CT result signed out to Dr. Aaron for follow-up with the patient. Also family noted left thigh new pain possible fracture x-ray is pending. Time: 16:10 Medical Decision Making Differential Diagnosis Differential Diagnoses: The differential diagnosis associated with the presentation includes ( Obstructive kidney stone, UTI, colitis, diverticulitis, left femur fracture, electrolyte derangement.) Admission/Observation Consideration of admission/observation: Escalation of care including admission/observation considered Lab Data MDM Lab Attestation statement: I reviewed the patient's lab results. 07/09/24 12:11 07/09/24 12:11 Labs: Lab Results 07/09/24 Range/Units 12:11 WBC 8.2 (4.8-10.8) X10*3/uL RBC 4.65 (4.20-5.50) X10*6/uL Hgb 12.1 (12.0-16.0) g/dl Hct 38.2 (37.0-47.0) % MCV 82.2 (80.0-98.0) fL MCH 26.0 L (27.0-33.0) pg MCHC 31.7 (31.0-35.0) g/dl RDW 16.0 (11.0-16.0) % Plt Count 290 D (160-400) X10*3/uL MPV 9.6 (9.4-12.3) fL Immature Gran % (Auto) 0.4 (0.0-0.4) % Neut % (Auto) 75.8 H (45-73) % Lymph % (Auto) 17.5 L (20-40) % [place] % (Auto) 5.1 (2-11) % Eos % (Auto) 1.0 (0-4) % Baso % (Auto) 0.2 (0-2) % Lymph # (Auto) 1.4 (1.2-4.9) X10*3/uL [place] # (Auto) 0.4 (0.1-1.2) X10*3/uL Eos # (Auto) 0.1 (0.0-0.4) X10*3/uL Baso # (Auto) 0.0 (0.0-0.2) X10*3/uL Abs Immat Gran (auto) 0.03 (0.00-0.03) X10*3/uL Absolute Neuts (auto) 6.2 (2.0-8.3) x10*3/uL Absolute Nucleated RBC 0.000 (0.0-0.012) X10*3/uL Nucleated RBC % (auto) 0.0 (0.0-0.2) /100WBC Sodium 143 (135-145) mmol/L Potassium 3.9 (3.3-5.1) mmol/L Chloride 110 H (96-108) mmol/L Carbon Dioxide 23 (22-29) mmol/L Anion Gap 14 (12-20) BUN 16 (9-16) mg/dL Creatinine 0.71 (0.5-1.4) mg/dL Estim Creat Clear Calc 98.7 Estimated GFR > 60 Random Glucose 95 (60-115) mg/dL Calcium 9.1 D (8.4-10.2) mg/dL Total Bilirubin 0.3 (0.0-1.0) mg/dL Direct Bilirubin 0.1 (0.0-0.5) mg/dL AST 15 (5-31) U/L ALT 20 (0-31) U/L Alkaline Phosphatase 79 (39-117) U/L Total Protein 8.0 (6.5-8.0) g/dL Albumin 3.9 (3.5-5.0) g/dL Lipase 38 (8-78) U/L Beta HCG, Quant < 2 mIU/mL Medications Administered Discontinued Medications Generic Name Dose Route Start Last Admin Trade Name Freq PRN Reason Stop Dose Admin Diazepam 5 mg 07/09/24 11:33 07/09/24 11:36 Diazepam 10 Mg/2 Ml Cartridge IM 07/09/24 11:34 5 mg STAT STA Administration Hydromorphone HCl 1 mg 07/09/24 11:34 07/09/24 12:33 Hydromorphone Hcl 1 Mg/Ml Syringe IVPUSH 07/09/24 11:35 1 mg ONCE ONE Administration Protocol Sodium Chloride 1,000 mls @ 999 mls/hr 07/09/24 11:21 07/09/24 14:14 Ns IV 07/09/24 12:21 Infused .Q1H1M ONE Infusion Ketorolac Tromethamine 15 mg 07/09/24 11:34 07/09/24 12:32 Ketorolac Tromethamine 15 Mg/Ml Vial IVPUSH 07/09/24 11:35 15 mg ONCE ONE Administration Ondansetron HCl 4 mg 07/09/24 12:40 07/09/24 12:42 Ondansetron Hcl 4 Mg/2 Ml Vial IVPUSH 07/09/24 12:41 4 mg ONCE ONE Administration Discharge Plan Discharge Clinical Impression: Osteogenesis imperfecta, Abdominal pain Patient Disposition: Still a Patient Prescriptions: No Action ibuprofen 800 mg tablet 800 mg PO Q8H PRN (Reason: for pain) Qty: 90 0RF zonisamide 100 mg capsule 600 mg PO BEDTIME Qty: 540 3RF cyclobenzaprine 10 mg tablet 10 mg PO Q8H PRN (Reason: Muscle Spasm) acetaminophen [Mapap Arthritis Pain] 650 mg tablet extended release 650 mg PO Q8H PRN (Reason: pain) morphine 30 mg tablet 30 mg PO TID PRN (Reason: Pain) nystatin 100,000 unit/gram powder 1 appl topical BID PRN (Reason: Rash) clotrimazole 1 % cream 1 appl topical BID PRN (Reason: Rash) cholecalciferol (vitamin D3) [Vitamin D3] 25 mcg (1,000 unit) Tablet 25 mcg PO DAILY oxybutynin chloride 5 mg tablet 5 mg PO BID PRN (Reason: Urinary Retention) nitrofurantoin monohyd/m-cryst [Macrobid] 100 mg capsule 100 mg PO Q12H 5 Days Qty: 8 0RF Rx Instructions: must administer with a meal/food albuterol sulfate [ProAir HFA] 90 mcg/actuation HFA aerosol inhaler 2 puff inhalation Q4H PRN (Reason: Respiratory Distress) albuterol sulfate 2.5 mg /3 mL (0.083 %) solution for nebulization 2.5 mg inhalation Q8H PRN (Reason: Respiratory Distress) Print Language: [place]
--- NOTE | 2024-07-09 11:32 | PC.NURSE ---
5mg IM Valium ordered and given per verbal orders of Jo-Ann Ruby MD because pt. is seizing
[2024-07-09] MEDS: diazePAM 10 MG/2 ML CARTRIDGE 5 MG IM (11:36)
[2024-07-09 12:24] LABS: MANUAL DIFF FLAG NO
[2024-07-09 12:26] LABS: Basophils Percent Auto 0.2 % (0-2); Eosinophils Absolute Auto 0.1 X10*3/uL (0.0-0.4); Hematocrit 38.2 % (37.0-47.0); Hemoglobin 12.1 g/dl (12.0-16.0); Imm Gran Abs Auto 0.03 X10*3/uL (0.00-0.03); Imm Gran Pct Auto 0.4 % (0.0-0.4); Lymphocytes Absolute Auto 1.4 X10*3/uL (1.2-4.9); Lymphocytes Percent Auto 17.5 % (20-40); Mean Corpuscular HGB Conc 31.7 g/dl (31.0-35.0); Mean Corpuscular Volume 82.2 fL (80.0-98.0); Mean Platelet Volume 9.6 fL (9.4-12.3); Monocytes Absolute Auto 0.4 X10*3/uL (0.1-1.2); Monocytes Percent Auto 5.1 % (2-11); Neutrophils Absolute Auto 6.2 x10*3/uL (2.0-8.3); Neutrophils Percent Auto 75.8 % (45-73); Platelet Count 290 X10*3/uL (160-400); Red Blood Count 4.65 X10*6/uL (4.20-5.50); White Blood Count 8.2 X10*3/uL (4.8-10.8)
[2024-07-09] MEDS: 0.9 % Sodium Chloride 1,000 ML 999 ML IV (12:32)
[2024-07-09] MEDS: Ketorolac Tromethamine 15 MG/ML VIAL IVPUSH ×2 (12:32→16:43)
[2024-07-09] MEDS: HYDROmorphone HCl 1 MG/ML SYRINGE IVPUSH ×2 (12:33→16:43)
[2024-07-09 12:41] LABS: Alanine Aminotransferase 20 U/L (0-31); Albumin Level 3.9 g/dL (3.5-5.0); Alkaline Phosphatase 79 U/L (39-117); Anion Gap 14 (12-20); Aspartate Amino Transferase 15 U/L (5-31); Bilirubin Direct 0.1 mg/dL (0.0-0.5); Bilirubin Total 0.3 mg/dL (0.0-1.0); Blood Urea Nitrogen 16 mg/dL (9-16); Calcium 9.1 mg/dL (8.4-10.2); Carbon Dioxide 23 mmol/L (22-29); Chloride 110 mmol/L (96-108); Creatinine Clr Calc Pharmacy 98.7; Estimated Glomerular Filt Rate > 60; Glucose Random 95 mg/dL (60-115); Lipase 38 U/L (8-78); Potassium 3.9 mmol/L (3.3-5.1); Sodium 143 mmol/L (135-145)
[2024-07-09] MEDS: ondansetron HCL 4 MG/2 ML VIAL IVPUSH (12:42)
--- NOTE | 2024-07-09 15:30 | PC.NURSE ---
Pt.'s mother states that pt.'s leg is tremulous, and this tremor was noticed by her before they came to the ED this morning. Both pt.'s mother and pt. are requesting an x-ray to see if there is a new break to this leg. Jo-Ann Ruby MD aware.
[2024-07-09 15:33] LABS: HCG Quantitative < 2 mIU/mL
--- NOTE | 2024-07-09 17:29 | PC.NURSE ---
Pt. incontinent of urine. Full bed change and ria care provided. Urine sample sent as ordered.
[2024-07-09 17:32] LABS: Appearance Urine Clear; Color Urine Yellow; Glucose Urine UA Negative (Negative); Leukocyte Esterase Urine Trace (Negative); Nitrite Urine Negative (Negative); Specific Gravity - Urine 1.015 (1.005-1.025); UMIC TRIGGER UACC YES; Urine Blood Negative (Negative); Urine Ketones Negative (Negative); Urine Protein Negative (Neg-Trace)
[2024-07-09 17:34] LABS: Bacteria Urine None Seen (None Seen); Hyaline Casts Urine 0-2 /LPF (0-2); RBC Urine 0-2 /HPF (0-2); Squamous Epithelial Cell Urine 0-2 /HPF (0-2); WBC Urine 0-5 /HPF (0-5)
[2024-07-09 17:44] LABS: UPreg QC Valid YES; Urine Pregnancy NEGATIVE (NEGATIVE)
== END 2024-07-09 20:47 | disposition home or self-care (01) ==
PROVIDERS: Emergency Medicine; Emergency Provider Emergency Medicine; PCP Internal Medicine
DX: N13.2 Hydronephrosis with renal and ureteral calculous obstruction (principal); Q78.0 Osteogenesis imperfecta; R11.2 Nausea with vomiting, unspecified; M79.605 Pain in left leg; M54.50 Low back pain, unspecified; R10.2 Pelvic and perineal pain; Z79.899 Other long term (current) drug therapy
CPT/HCPCS: 36415; 73551; 74176; 80048; 80076; 81001; 81025; 83690; 84702; 85025; 96361; 96372; 96374; 96375; 96376; 99284; J1171; J1885; J2405; J3360

== ENCOUNTER 2024-08-14 16:15 | Emergency (ER) | payer OTHER, SELFPAY ==
--- NOTE | ~2024-08-14 | XR_ITS ---
EXAMINATION: XR FOOT, RIGHT CLINICAL INFORMATION: pain, injury COMPARISON: X-ray 04/11/2023 TECHNIQUE: 2 views of the right foot. FINDINGS: Redemonstrated is markedly abnormal appearance of the osseous structures, with very gracile bones, consistent with manifestations of osteogenesis imperfecta. Extensive chronic osseous abnormality; marked osteopenia; this limits evaluation. Atypical positioning, overlapping osseous structures, limiting evaluation. No gross displaced fracture is identified, however evaluation is markedly limited. XR/XR foot RT min 3V IMPRESSION: Chronic appearing changes of osteogenesis imperfecta. Study is extremely limited due to factors detailed above. No obvious displaced acute fracture is identified. Clinically correlate. Additional/follow-up imaging as clinically indicated. Electronically signed by: Deandre Hartman MD 08/14/2024 09:26 PM [facility] DE[facility]
--- NOTE | ~2024-08-14 | XR_ITS ---
EXAMINATION: XR SHOULDER, RIGHT CLINICAL INFORMATION: pain, injury COMPARISON: None available. TECHNIQUE: 2 supine views of the right shoulder. FINDINGS: Abnormal appearance of the osseous structures, consistent with sequela of osteogenesis imperfecta. Bones are osteopenic, limiting evaluation. The humeral head is aligned towards the glenoid. The glenohumeral articulation is not reliably evaluated in the provided images. There is suboptimal visualization of the glenoid. There is a chronic appearing fracture of the distal humeral diaphysis, with prominent displacement at the fracture site. No obvious acute displaced fracture is identified in this limited study. XR/XR shoulder RT min 2V IMPRESSION: There are manifestations of osteogenesis imperfecta. Bones are osteopenic, limiting evaluation. Chronic appearing displaced fracture of the distal humeral diaphysis. The glenohumeral articulation is not well evaluated on the provided images. No obvious acute displaced fracture is identified. Additional/follow-up imaging as clinically indicated. Electronically signed by: Deandre Hartman MD 08/14/2024 09:22 PM [facility] DEAN
--- NOTE | ~2024-08-14 | XR_ITS ---
EXAMINATION: XR FEMUR, LEFT CLINICAL INFORMATION: pain, injury COMPARISON: X-ray 04/10/2023 TECHNIQUE: 3 AP and 2 lateral views of the left femur were obtained. FINDINGS: Markedly limited evaluation, limited visualization of the structures due to patient body habitus and decreased bone mineralization. Redemonstrated is manifestation of osteogenesis imperfecta with left femoral pseudarthrosis. Intramedullary rods are redemonstrated, similar in positioning as compared to previous. Limited evaluation of the knee joint in the provided views. Limited evaluation of the partially visualized proximal tibia and fibula. Intramedullary linda present, possibly in the tibia, partially imaged.. No gross acute displaced fracture is identified, however evaluation is markedly limited. XR/XR femur LT 2V IMPRESSION: Very limited study. No gross acute displaced fracture is identified on this very limited evaluation. Redemonstrated is manifestation of osteogenesis imperfecta and left femoral pseudarthrosis. Clinically correlate. Additional/follow-up imaging as clinically indicated. Electronically signed by: Deandre Hartman MD 08/14/2024 09:23 PM [facility] DEAN
[2024-08-14 16:31] VITALS: BP 132/84; BP 151/75; PULSE 105; PULSE 110; RESP 18; TEMP 36.9; O2SAT 96; O2SAT 97; BMI 77.5
--- NOTE | 2024-08-14 16:31 | ED.GENADULT ---
HPI - General Adult General Chief complaint: Fall Stated complaint: FALL IN BATHTUB Time Seen by Provider: 08/14/24 16:30 Source: patient, family (patient's mother) and EMS Mode of arrival: EMS Limitations: no limitations History of Present Illness ED Provider: Leonora Kirkland PA-C HPI narrative: Patient is a 44 year old assigned female at with a history of seizures and osteogenesis imperfecta presenting to the emergency department today with right shoulder pain, right foot pain, and left femur pain after a fall. Patient states that her father was attempting to help her move from the tub when there was a fall. Patient states that she is having right shoulder pain, right foot pain, and left femur pain. Patient denies any head strike or loss of consciousness with the incident, dizziness, lightheadedness, abdominal pain, nausea, vomiting, fever, chills, blurry vision, double vision, loss of vision, chest pain, difficulty breathing, shortness of breath, back pain, night sweats, pain with urination, increased urinary frequency, increased urinary urgency, blood in her urine or stool, syncope or a near syncopal episode, bowel incontinence, bladder incontinence, or any other complaints at this time. Relieving factors: none Exacerbating factors: none Associated symptoms: denies other symptoms Treatments prior to arrival: other (EMS gave fentanyl and patient's mother gave PO Morphine) Related Data Home Medications ?Medication ?Instructions ?Recorded ?Confirmed albuterol sulfate 2.5 mg/3 mL 2.5 mg inhalation Q8H PRN 07/17/20 04/11/23 (0.083 %) solution for nebulization Respiratory Distress albuterol sulfate 90 mcg/actuation 2 puff inhalation Q4H PRN 07/17/20 04/11/23 aerosol inhaler (ProAir HFA) Respiratory Distress acetaminophen 650 mg 650 mg PO Q8H PRN pain 04/11/23 04/11/23 tablet,extended release (Mapap Arthritis Pain) cholecalciferol (vitamin D3) 25 25 mcg PO DAILY 04/11/23 04/11/23 mcg (1,000 unit) tablet (Vitamin D3) clotrimazole 1 % topical cream 1 appl topical BID PRN Rash 04/11/23 04/11/23 cyclobenzaprine 10 mg tablet 10 mg PO Q8H PRN Muscle Spasm 04/11/23 04/11/23 morphine 30 mg immediate release 30 mg PO TID PRN Pain 04/11/23 04/11/23 tablet nystatin 100,000 unit/gram topical 1 appl topical BID PRN Rash 04/11/23 04/11/23 powder oxybutynin chloride 5 mg tablet 5 mg PO BID PRN Urinary Retention 04/11/23 04/11/23 Previous Rx's ?Medication ?Instructions ?Recorded ibuprofen 800 mg tablet 800 mg PO Q8H PRN for pain #90 tabs 08/24/21 zonisamide 100 mg capsule 600 mg (6 x 100 mg) PO BEDTIME 12/03/21 #540 caps nitrofurantoin 100 mg PO Q12H 5 days #8 caps 04/11/23 monohydrate/macrocrystals 100 mg capsule (Macrobid) morphine 30 mg immediate release 30 mg PO Q6H PRN pain #20 tabs 07/09/24 tablet Allergies Allergy/AdvReac Type Severity Reaction Status Date / Time amoxicillin [Amoxicillin] Allergy Mild HIVES Verified 08/14/24 16:37 aspirin [Aspirin] Allergy Mild HIVES Verified 08/14/24 16:37 codeine [Codeine] Allergy Mild HIVES Verified 08/14/24 16:37 latex [Latex] Allergy Mild HIVES Verified 08/14/24 16:37 Penicillins Allergy Mild HIVES Verified 08/14/24 16:37 azithromycin [AZITHROMYCIN] Allergy Unknown HIVES Verified 08/14/24 16:37 divalproex sodium Allergy Unknown HIVES Verified 08/14/24 16:37 [From Depakote] erythromycin base Allergy Unknown HIVES Verified 08/14/24 16:37 [Erythromycin Base] gabapentin [From Neurontin] Allergy Unknown HIVES Verified 08/14/24 16:37 phenobarbital Allergy Unknown anaphylaxis Verified 08/14/24 16:37 phenytoin [From Dilantin] Allergy Unknown HIVES Verified 08/14/24 16:37 Sulfa (Sulfonamide Allergy Unknown HIVES Verified 08/14/24 16:37 Antibiotics) ALL SEIZURE MEDS Allergy Intermediate HIVES Uncoded 08/14/24 16:37 oxycodone Allergy Unknown hives Uncoded 08/14/24 16:37 Review of Systems Constitutional: Constitutional: Reports no additional constitutional complaints, Denies chills, Denies fever(s) and Denies night sweats Eyes: Eyes: Reports no additional eye complaints, Denies blurry vision, Denies change in vision, Denies diplopia, Denies eye discharge, Denies loss of vision and Denies eye pain ENT: Denies dizziness Cardiovascular: Cardiovascular: Reports no additional cardiovascular complaints, Denies chest pain, Denies lightheadedness, Denies Loss of Consciousness and Denies dyspnea Respiratory: Respiratory: Reports no additional respiratory complaints and Denies dyspnea Gastrointestinal: Gastrointestinal: Reports no additional gastrointestinal complaints, Denies abdominal pain, Denies melena, Denies hematochezia, Denies change in bowel habits and Denies change in stool character Genitourinary: Genitourinary: Denies hematuria, Denies urinary frequency, Denies dysuria, Denies urinary incontinence, Denies urinary hesitancy and Denies urinary urgency Musculoskeletal: Musculoskeletal: Reports no additional musculoskeletal complaints, Denies numbness and Denies tingling Comments: right shoulder pain left femur pain right foot pain Neurologic: Denies dizziness, Denies loss of vision, Denies numbness and Denies tingling Psychiatric: Psychiatric: Reports no additional psychiatric complaints Endocrine: Endocrine: Reports no additional endocrine complaints Hematologic/Lymphatic: Hematologic/Lymphatic: Reports no additional hematologic/lymphatic complaints Allergic/Immunologic: Allergic/Immunologic: Reports no additional allergic/immunologic complaints [facility] Past Medical History Attestation statement: The following information was validated with the patient. (all information was validated with the patient's mother) Source: old records reviewed, obtained from family (patient's mother provided additional history and confirmed the history provided by the patient) and nursing notes reviewed Medical History Renal colic Seizure disorder Osteogenesis imperfecta Surgical History History of cystoscopy History of orthopedic surgery Family History Family History Father Diabetes Hypertension Mother Cervical disc disease Fibromyalgia Breast cancer Social History Social History Alcohol intake: never Patient Tobacco Use Status: Never used Tobacco Advance Directives: Yes Advance Directives on File: Yes Advance Directives Date on File: 04/11/23 Physical Exam ED Vital Signs: Vital Signs - 24 hr 08/14/24 16:31 11/18/24 19:34 Temperature 98.5 F 98.2 F Pulse Rate 110 H 108 H Respiratory Rate 18 18 Blood Pressure 151/75 H Pulse Oximetry 96 97 Oxygen Delivery Method Room Air Room Air BMI result Body Mass Index 77.5 Const General: cooperative, no acute distress, alert and awake Nutritional Appearance: well nourished Orientation/consciousness: patient oriented x3 Limitations: no limitations HENMT Head: Yes normal to inspection and Yes atraumatic Ears: hearing grossly normal bilaterally and external ears normal General nose exam: Normal external nose present, no nasal discharge noted and no epistaxis Face and sinus: Yes normal facial exam, No abrasion and No laceration Mouth: Normal oral and palatal mucosa present, no drooling and no muffled voice Eyes General: appearance normal, both eyes and all related structures Periorbital: periorbital findings normal Eyelids: Yes eyelids normal Conjunctivae: conjunctivae normal Pupils: Equal, round and reactive pupils present EOM: EOMs intact bilaterally Neck Neck: Yes normal visual inspection, Yes full ROM and Yes no lymphadenopathy Chest Chest palpation & inspection: normal inspection of the chest Resp Effort & Inspection: normal respiratory effort and able to speak in complete sentences GI Inspection: Yes normal to inspection Neuro General: patient oriented x3 and moves all extremities Cranial nerves: Yes Equal, round and reactive pupils present Cognition (Neuro): normal cognition Extrem Other: patient non-ambulatory at baseline General: Yes normal to inspection, Yes full ROM and Yes capillary refill normal Psych Appearance: grossly normal Mental Status: mental status grossly normal Affect: normal affect Attitude: cooperative Thought process: Normal thought process present Thought content: Normal thought content present Insight: Good insight present (Psych) Course Course Course Narrative: Julia Schuler PA-C have accepted care of the patient and signed out pending Imaging and final disposition x-ray right foot: XR/XR foot RT min 3V IMPRESSION: Chronic appearing changes of osteogenesis imperfecta. Study is extremely limited due to factors detailed above. No obvious displaced acute fracture is identified. Clinically correlate. Additional/follow-up imaging as clinically indicated. X-ray left femur: XR/XR femur LT 2V IMPRESSION: Very limited study. No gross acute displaced fracture is identified on this very limited evaluation. Redemonstrated is manifestation of osteogenesis imperfecta and left femoral pseudarthrosis. Clinically correlate. Additional/follow-up imaging as clinically indicated. X-ray right shoulder: XR/XR shoulder RT min 2V IMPRESSION: There are manifestations of osteogenesis imperfecta. Bones are osteopenic, limiting evaluation. Chronic appearing displaced fracture of the distal humeral diaphysis. The glenohumeral articulation is not well evaluated on the provided images. No obvious acute displaced fracture is identified. Additional/follow-up imaging as clinically indicated. Medications Administered Discontinued Medications Generic Name Dose Route Start Last Admin Trade Name Freq PRN Reason Stop Dose Admin Cyclobenzaprine HCl 10 mg 08/14/24 20:07 08/14/24 20:23 Cyclobenzaprine Hcl 10 Mg Tablet PO 08/14/24 20:08 10 mg ONCE ONE Administration Medical Decision Making Medical Decision Making [facility] Narrative: Patient is a 44 year old assigned female at with a history of seizures and osteogenesis imperfecta presenting to the emergency department today with right shoulder pain, right foot pain, and left femur pain after a fall. Patient's physical exam was unremarkable. Patient's right shoulder, left femur, and right foot x-rays are pending. I explained my physical exam findings to the patient and the patient's mother. I answered all questions asked by the patient and the patient's mother. Patient's disposition is pending the x-ray results. [facility] pending results. Differential Diagnosis Differential Diagnoses: The differential diagnosis associated with the presentation includes Shoulder pain Femur pain Foot pain Foot fracture Femur fracture Humerus fracture Admission/Observation Consideration of admission/observation: Escalation of care including admission/observation considered Patient's disposition will be determined after x-ray reads. Independent Historian Clinical information obtained from an independent historian. History obtained from or confirmed by: Parent (patient's mother provided additional history and confirmed the history provided by the patient.) Discharge Plan Discharge Clinical Impression: Acute shoulder pain, Acute foot pain, Pain in femur Patient Disposition: Home, Self-Care Additional Instructions: Thus far, the x-rays of the right shoulder, right foot and left femur were negative for fracture. Continue to follow up with your healthcare providers. Prescriptions: No Action ibuprofen 800 mg tablet 800 mg PO Q8H PRN (Reason: for pain) Qty: 90 0RF zonisamide 100 mg capsule 600 mg PO BEDTIME Qty: 540 3RF morphine 30 mg tablet 30 mg PO Q6H PRN (Reason: pain) Qty: 20 0RF Rx Instructions: Partial Fill upon patient request. cyclobenzaprine 10 mg tablet 10 mg PO Q8H PRN (Reason: Muscle Spasm) acetaminophen [Mapap Arthritis Pain] 650 mg tablet extended release 650 mg PO Q8H PRN (Reason: pain) morphine 30 mg tablet 30 mg PO TID PRN (Reason: Pain) nystatin 100,000 unit/gram powder 1 appl topical BID PRN (Reason: Rash) clotrimazole 1 % cream 1 appl topical BID PRN (Reason: Rash) cholecalciferol (vitamin D3) [Vitamin D3] 25 mcg (1,000 unit) Tablet 25 mcg PO DAILY oxybutynin chloride 5 mg tablet 5 mg PO BID PRN (Reason: Urinary Retention) nitrofurantoin monohyd/m-cryst [Macrobid] 100 mg capsule 100 mg PO Q12H 5 Days Qty: 8 0RF Rx Instructions: must administer with a meal/food albuterol sulfate [ProAir HFA] 90 mcg/actuation HFA aerosol inhaler 2 puff inhalation Q4H PRN (Reason: Respiratory Distress) albuterol sulfate 2.5 mg /3 mL (0.083 %) solution for nebulization 2.5 mg inhalation Q8H PRN (Reason: Respiratory Distress) Print Language: Hungarian
[2024-08-14 19:34] VITALS: PULSE 108; RESP 18; TEMP 36.8; O2SAT 97
[2024-08-14] MEDS: Cyclobenzaprine HCl 10 MG TABLET PO (20:23)
[2024-08-14 22:45] VITALS: BP 148/88; PULSE 98; RESP 19; TEMP 36.8; O2SAT 96
[2024-08-14 22:47] VITALS: BP 148/88; PULSE 98; RESP 19; TEMP 36.8; O2SAT 96
== END 2024-08-14 22:49 | disposition home or self-care (01) ==
PROVIDERS: Emergency Provider Emergency Medicine Emergency Medical Services; PCP Internal Medicine
DX: M25.511 Pain in right shoulder (principal); M79.671 Pain in right foot; M79.652 Pain in left thigh; Z91.81 History of falling; G40.909 Epilepsy, unspecified, not intractable, without status epilepticus; Z79.899 Other long term (current) drug therapy
CPT/HCPCS: 73030; 73552; 73630; 99284